=== PATIENT | male | born 1975 | race Caucasian/White ===

== ENCOUNTER 2020-02-28 17:18 | Emergency (ER) | payer OTHER ==
[~2020-02-28] VITALS: Ht 172.7 cm; Wt 137.4 kg
[2020-02-28] MEDS ORDERED: COZAAR50 MG PO (21:54)
== END 2020-02-28 22:36 | disposition home or self-care (01) ==
LOC: ER 17:18 → EDBD 17:21 → ER 22:36
DX: I10 Essential (primary) hypertension (principal)

== ENCOUNTER 2020-04-25 08:36 | Emergency (ER) | payer OTHER ==
[~2020-04-25] VITALS: Ht 172.7 cm; Wt 137.4 kg
[~2020-04-25 08:36] MED LIST: COZAAR50 MG PO
== END 2020-04-25 11:11 | disposition home or self-care (01) ==
LOC: ER 08:36
DX: K52.89 Other specified noninfective gastroenteritis and colitis (principal)

== ENCOUNTER 2020-06-15 14:32 | Emergency (ER) | payer OTHER ==
[~2020-06-15] VITALS: Ht 172.7 cm; Wt 127.0 kg
[2020-06-15] MEDS ORDERED: CIPRO500 MG PO (18:53)
[2020-06-15] MEDS ORDERED: FLAGYL500MG PO (18:53)
[2020-06-15] MEDS ORDERED: PROBIOTIC1 EAC2 PO (18:53)
[2020-06-15] MEDS ORDERED: LEVSIN/SL0.125 MG SL (18:53)
[2020-06-15] MEDS ORDERED: PROTONIX40 MG PO (18:53)
== END 2020-06-15 19:19 | disposition home or self-care (01) ==
LOC: ER 14:32
DX: K57.32 Diverticulitis of large intestine without perforation or abscess without bleeding (principal); Z03.818 Encounter for observation for suspected exposure to other biological agents ruled out; R10.32 Left lower quadrant pain

== ENCOUNTER 2020-10-01 11:44 | Emergency (ER) | payer OTHER ==
[~2020-10-01] VITALS: Ht 170.2 cm; Wt 95.3 kg
[~2020-10-01 11:44] MED LIST changes: +CIPRO500 MG PO; +FLAGYL500MG PO; +LEVSIN/SL0.125 MG SL; +PROBIOTIC1 EAC2 PO; +PROTONIX40 MG PO
== END 2020-10-01 19:54 | disposition home or self-care (01) ==
LOC: ER 11:44
DX: K57.32 Diverticulitis of large intestine without perforation or abscess without bleeding (principal); R10.31 Right lower quadrant pain; Z03.818 Encounter for observation for suspected exposure to other biological agents ruled out

== ENCOUNTER 2020-10-06 18:27 | Inpatient (IN) | payer OTHER ==
[~2020-10-06] VITALS: Ht 172.7 cm; Wt 127.0 kg
--- NOTE | 2020-10-06 19:10 | NUR ---
SE RECIBE PTE ALERTA Y ORIENTADO X3,REFIERE TENER DOLOR DE DIVERTICULOS,REFIERE QUE ESTUVO RECINETEMENTE EN LA ЕЛЕНА DE ER,POR LOS MISMOS SINTOMAS SE LE ALIVIO HOY SE LA AGUDIZO EL DOLOR.
--- NOTE | 2020-10-06 20:20 | NUR ---
PTE EVALUADO POR EL DR LUEVANO QUIEN ORDENA EL [place]. MS Adonay FOLH ORIENTA SOBRE EL TX ORDENADO, LO CUAL REFIERE ENTENDER, REALIZA PRUEBAS DE LABORATORIO Y ADMINISTRA MEDICAMENTOS CUONG ORDEN MEDICA Y SIGUIENDO MEDIDAS ASEPTICAS.
--- NOTE | 2020-10-07 01:40 | NUR ---
SE RECIBE MASCULINO ALERTA Y ORIENTADO POR JESSICA ESFERAS, EN ALBERTO CON BARANDAS SGEURAS Y ELEVADAS. AREA DE VENOPUNCION ERNESTO DE EDEMA O ENROJECIMIENTO. RECIBIENDO IVF ORDENADO. SE MANTIENE EN ESPERA DE MEDICO CONSULTADO.
--- NOTE | 2020-10-07 07:12 | NUR ---
PTE ALERTA Y ORIENTADO POR JESSICA ESFERAS CON BUEN PATRON RESPIRATORIO. AREA DE CANALIZACION PERMANECE PATENTE, ERNESTO DE EDEMA Y ERITEMA. PENDIENTE CONSULTA CON POR ACUTE DIVERTICULITIS. SE MANTIENE BAJO OBSERVACION POR CAMBIOS.
== END 2020-10-09 11:14 | disposition home or self-care (01) | DRG 392 ==
LOC: ER 18:27 → MEDJ 10-07 10:02 → MEDI 10-07 10:02 → MEDJ 10-08 19:09
PROVIDERS: ADMIT Internal Medicine; ATTEND Internal Medicine
PROC: BW21ZZZ Computerized Tomography (CT Scan) of Abdomen and Pelvis (ICD-10-PCS; principal; 2020-10-07)
DX: K57.32 Diverticulitis of large intestine without perforation or abscess without bleeding (principal); I10 Essential (primary) hypertension; E66.9 Obesity, unspecified

== ENCOUNTER 2021-03-27 11:00 | Day surgery (SDC) | payer OTHER | END 2021-03-27 16:30 | disposition home or self-care (01) | LOC: AMB-ENDOS 11:00 | PROVIDERS: ATTEND Surgery | DX: D12.5 Benign neoplasm of sigmoid colon (principal); Z20.822 Contact with and (suspected) exposure to COVID-19 ==

== ENCOUNTER 2023-07-17 09:45 | Inpatient (IN) | payer OTHER ==
[~2023-07-17] VITALS: Ht 172.7 cm; Wt 127.0 kg
[2023-07-17] MEDS ORDERED: LOSARTAN-HCTZ1 EAC2 PO (12:06)
[2023-07-31 13:31] LABS: ABG PH 7.499 (7.35-7.45); ABG PO2 128.3 mmHg (80-100); ABG pCO2 25.4 mmHg (35-45); BICARBONATE 19.3 mmol/l (23-25); SaO2 99.2 %; Tco2 20.1 mmol/l; o2 21 %; puncture site RADIAL RIGHT
[2023-07-31 13:32] LABS: allen test SATISFACTORY
[2023-07-31 15:53] LABS: HEMATOCRIT 47.9 % (39.0-48.0); HEMOGLOBIN 16.3 g/dL (13-16.00); MEAN CELL VOLUME 86.2 fL (80.0-100.00); MEAN CORPUSCULAR HEMOGLOBIN 29.4 pg (27.00-32.0); MEAN CORPUSCULAR HGB CONC 34.1 g/dl (32.0-36.0); PLATELET COUNT 240 K/uL (150-450); RED BLOOD COUNT 5.55 M/uL (4.00-6.00); RED CELL DISTRIBUTION WIDTH 13.5 % (11.5-14.5)
[2023-07-31 16:22] LABS: ALBUMIN 3.5 gm/dL (3.4-5.0); CALCIUM 8.5 mg/dL (8.5-10.1); CREATININE SERUM 1.11 mg/dL (0.70-1.30); GFR 70.41; MAGNESIUM 1.8 mg/dL (1.8-2.4); PHOSPHOROUS 3.3 mg/dL (2.5-4.9); POTASSIUM 3.41 mEq/L (3.5-5.1)
[2023-08-01 07:57] LABS: HEMATOCRIT 46.3 % (39.0-48.0); HEMOGLOBIN 15.9 g/dL (13-16.00); MEAN CELL VOLUME 85.5 fL (80.0-100.00); MEAN CORPUSCULAR HEMOGLOBIN 29.3 pg (27.00-32.0); MEAN CORPUSCULAR HGB CONC 34.3 g/dl (32.0-36.0); PLATELET COUNT 283 K/uL (150-450); RED BLOOD COUNT 5.41 M/uL (4.00-6.00); RED CELL DISTRIBUTION WIDTH 13.1 % (11.5-14.5)
[2023-08-01 08:20] LABS: ALBUMIN 3.6 gm/dL (3.4-5.0); CALCIUM 8.9 mg/dL (8.5-10.1); CREATININE SERUM 0.79 mg/dL (0.70-1.30); GFR 104.25; PHOSPHOROUS 2.9 mg/dL (2.5-4.9); POTASSIUM 3.95 mEq/L (3.5-5.1)
[2023-08-02 08:11] LABS: CALCIUM 8.4 mg/dL (8.5-10.1); CREATININE SERUM 0.75 mg/dL (0.70-1.30); GFR 110.69; MAGNESIUM 2.2 mg/dL (1.8-2.4); PHOSPHOROUS 2.3 mg/dL (2.5-4.9); POTASSIUM 4.01 mEq/L (3.5-5.1)
[2023-08-02 09:00] LABS: HEMATOCRIT 41.2 % (39.0-48.0); HEMOGLOBIN 14.2 g/dL (13-16.00); MEAN CELL VOLUME 87.1 fL (80.0-100.00); MEAN CORPUSCULAR HEMOGLOBIN 29.9 pg (27.00-32.0); MEAN CORPUSCULAR HGB CONC 34.4 g/dl (32.0-36.0); PLATELET COUNT 219 K/uL (150-450); RED BLOOD COUNT 4.73 M/uL (4.00-6.00); RED CELL DISTRIBUTION WIDTH 13.5 % (11.5-14.5)
[2023-08-03 08:05] LABS: HEMATOCRIT 41.2 % (39.0-48.0); HEMOGLOBIN 13.9 g/dL (13-16.00); MEAN CORPUSCULAR HEMOGLOBIN 29.7 pg (27.00-32.0); MEAN CORPUSCULAR HGB CONC 33.8 g/dl (32.0-36.0); PLATELET COUNT 217 K/uL (150-450); RED BLOOD COUNT 4.68 M/uL (4.00-6.00)
[2023-08-03] MEDS ORDERED: HYOSCYAMINE0.125 M1 SL (15:28)
== END 2023-08-03 16:30 | disposition home or self-care (01) | DRG 330 ==
LOC: SURH 07-24 09:45 → O/R 07-31 04:58 → SURH 07-31 13:12
PROVIDERS: Internal Medicine Geriatric Medicine; ADMIT Surgery; ATTEND Surgery
PROC: 0DBP4ZZ Excision of Rectum, Percutaneous Endoscopic Approach (ICD-10-PCS; 2023-07-31)
PROC: 0DJD8ZZ Inspection of Lower Intestinal Tract, Via Natural or Artificial Opening Endoscopic (ICD-10-PCS; 2023-07-31)
PROC: 4A12X4Z Monitoring of Cardiac Electrical Activity, External Approach (ICD-10-PCS; 2023-07-31)
PROC: 3E0F7SF Introduction of Other Gas into Respiratory Tract, Via Natural or Artificial Opening (ICD-10-PCS; 2023-07-31)
PROC: 0DTN4ZZ Resection of Sigmoid Colon, Percutaneous Endoscopic Approach (ICD-10-PCS; principal; 2023-07-31 13:15)
PROC: 0W3P8ZZ Control Bleeding in Gastrointestinal Tract, Via Natural or Artificial Opening Endoscopic (ICD-10-PCS; 2023-08-01)
DX: K57.32 Diverticulitis of large intestine without perforation or abscess without bleeding (principal); K56.51 Intestinal adhesions [bands], with partial obstruction; K91.840 Postprocedural hemorrhage of a digestive system organ or structure following a digestive system procedure; K62.5 Hemorrhage of anus and rectum; E83.39 Other disorders of phosphorus metabolism; E83.51 Hypocalcemia; R10.32 Left lower quadrant pain; E10.9 Type 1 diabetes mellitus without complications; I10 Essential (primary) hypertension; G47.39 Other sleep apnea